=== PATIENT | female | born 1970 | race Caucasian/White ===

== ENCOUNTER 2021-04-01 12:37 | Emergency (ER) | payer OTHER ==
[~2021-04-01] VITALS: Ht 167.6 cm; Wt 86.2 kg
[2021-04-01] MEDS ORDERED: IBUPROFEN 800 MG TABLET PO ONE (13:00)
[2021-04-01] MEDS ORDERED: IBUPROFEN 800 MG TABLET ONE (13:03)
[2021-04-01 14:55] VITALS: BP 126/72
== END 2021-04-01 14:45 | disposition home or self-care (01) ==
LOC: ER 12:37
DX: S92.251A Displaced fracture of navicular [scaphoid] of right foot, initial encounter for closed fracture (principal); V49.40XA Driver injured in collision with unspecified motor vehicles in traffic accident, initial encounter; Y92.410 Unspecified street and highway as the place of occurrence of the external cause; Z88.2 Allergy status to sulfonamides
CPT/HCPCS: 73630; A4663